=== PATIENT | male | born 1940 | race Caucasian/White ===

== ENCOUNTER 2017-04-08 13:11 | Inpatient (IN) | payer MEDICARE, OTHER ==
[~2017-04-08] VITALS: Ht 188 cm; Wt 91.2 kg
[~2017-04-08 13:11] MED LIST: ASPI-1471 PO; ASPI-715 PO; BETA BLOCKER PO; CALC-547 PO; DIURETIC PO; GLUC-232 PO; GLUC-283 PO; HYDR-385 PO; HYDR12.561 PO; HYDR28.426 TP; KET10 PO; LISI-351 PO; LISI5TAB25 PO; LOSA50TA72 PO; METF-410 PO; METF500T4 PO; METO25TA93 PO; METR55GE TP; MULT1CAP59 PO; MULT1TAB64 PO; PNEU0.5D3 IM; SIM10 PO; SIMV10TA98 PO; STATIN PO; TAMS0.4C25 PO; TRAZ-156 PO; ZOLP-350 PO; ZOLP-358 PO
--- NOTE | 2017-04-08 13:25 | ER Report ---
History and Physical Time Seen By MD: 13:24 Hx. of Stated Complaint: Pt reports a fast heart rate. pt states he is not dizzy, sweaty or confused. (SHEREE HE [facility]-) HPI/ROS CHIEF COMPLAINT: Rapid heart rate HISTORY OF PRESENT ILLNESS: This is a 76-year-old male who presents to the emergency department for a rapid heart rate. Patient states that he was sitting in his chair watching television about 30 minutes prior to arrival when he noticed his heart rate was beginning to accelerate. Patient states that he had an episode similar to this in January and has had an echocardiogram and has been following up with cardiology but has not had any recurrent heart rate issues. Patient denies chest pain or shortness of breath. Patient has no other complaints no aches, chills, fevers. Patient denies recent travel. REVIEW OF SYSTEMS: Constitutional: No fever, no chills. Eyes: No discharge. ENT: No sore throat. Cardiovascular: As above. Respiratory: No cough, no shortness of breath. Gastrointestinal: No abdominal pain, no vomiting. Genitourinary: No hematuria. Musculoskeletal: No back pain. Skin: No rashes. Neurological: No headache. (SHEREE HE [facility]) Allergies: Coded Allergies: lisinopril (Unverified Adverse Reaction, Mild, cough, 08/13/14) tickle in throat and cough after starting lisinopril. stopped in 07/30. Home Meds Active Scripts Zolpidem Tartrate (AMBIEN) 10 Mg Tablet, 1 TAB PO QHS Y for SLEEP, #30 TAB 1 Refill Prov:JAEL MCDONOUGH MD 02/25/17 Losartan Potassium (LOSARTAN POTASSIUM) 50 Mg Tablet, 1 TAB PO QDAY, #90 TAB 3 Refills Patient must see provider for further refills Prov:JAEL MCDONOUGH MD 02/25/17 Simvastatin (SIMVASTATIN) 10 Mg Tablet, 1 TAB PO HS, #90 TAB 3 Refills Prov:JAEL MCDONOUGH MD 02/25/17 Reported Medications Metformin Hcl (METFORMIN HCL) 500 Mg Tablet, 1 TAB PO QID, TAB 04/08/17 Metronidazole (METROGEL) 55 Gm Gel.w.pump, 55 GM TP 02/06/16 Multivitamin (MULTI VITAMIN DAILY) 1 Each Tablet, 1 EACH PO DAILY 08/11/14 Gluc 2KCL/Chondr/Galilea Hy/Hy Ac (GLUCOSAMINE & CHONDROITIN CAP) Unknown Strength Capsule, 1000 MG PO BID, CAPSULE 03/30/14 Aspirin (ASPIR 81) 81 Mg Tablet.dr, 81 MG PO QDAY, TAB 03/30/14 Discontinued Scripts Metformin Hcl (METFORMIN HCL ER) 500 Mg Tab.er.24, 2 TAB PO BID, #360 TAB 3 Refills Prov:JAEL MCDONOUGH MD 02/25/17 Past Medical/Surgical History She has a past medical and surgical history of hypertension, hypercholesterolemia, hernia repair, vasectomy, arthritis, right foot injury with a fracture, wears glasses, deafness left ear, does use hearing aids, type II diabetes, leukopenia, appendectomy, tonsillectomy, dental implants and bilateral cataract surgery. 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 (1665) Pulse Ox 95 95 04/08/17 04/08/17 04/08/17 04/08/17 13:36 13:40 13:41 13:46 Pulse 138 137 138 Resp 23 17 15 B/P (MAP) 129/104 (112) Pulse Ox 92 92 93 04/08/17 04/08/17 04/08/17 04/08/17 13:51 13:56 14:00 14:01 Pulse 129 134 137 Resp 18 16 17 B/P (MAP) 142/100 (114) Pulse Ox 91 92 94 (SHIRLENE SEGOVIA MD) Physical Exam General Appearance: The patient is alert, has no immediate need for airway protection and no signs of toxicity. Eyes: Pupils equal and round no pallor or injection. ENT, Mouth: Mucous membranes are moist. Respiratory: There are no retractions, lungs are clear to auscultation. Cardiovascular: Irregular rate and rhythm at 140bpm, no murmurs, clicks or rubs. Gastrointestinal: Abdomen is soft and non tender, no masses, bowel sounds normal. Neurological: Alert and oriented 4. Moving all extremities. Following all commands. No focal neuro deficits. Skin: Warm and dry, no rashes. Musculoskeletal: Neck is supple non tender. Extremities are nontender, nonswollen and have full range of motion. [ ] DIFFERENTIAL DIAGNOSIS: After history and physical exam differential diagnosis was considered for chest pain including but not limited to myocardial ischemia, pericarditis pulmonary embolus, chest wall pain, pleural inflammation and pulmonary infectious causes, afib, aflutter. ([facility]EREE HE [facility]) Medical Decision Making Data Points Result Diagram: 04/08/17 1336 04/08/17 1336 Laboratory Hematology Test 04/08/17 13:36 Red Blood Count 4.96 M/uL (4.00-5.60) Mean Corpuscular Volume 92.3 fL (80.0-96.0) Mean Corpuscular Hemoglobin 31.3 pg (26.0-33.0) Mean Corpuscular Hemoglobin Concent 33.9 g/dL (32.0-36.0) Red Cell Distribution Width 14.0 % (11.5-14.5) Mean Platelet Volume 10.1 fL (7.2-11.1) Neutrophils (%) (Auto) 70.5 % (39.4-72.5) Lymphocytes (%) (Auto) 12.6 % (17.6-49.6) Monocytes (%) (Auto) 13.0 % (4.1-12.4) Eosinophils (%) (Auto) 3.1 % (0.4-6.7) Basophils (%) (Auto) 0.8 % (0.3-1.4) Nucleated RBC Relative Count (auto) 0.2 /100WBC Neutrophils # (Auto) 3.9 K/uL (2.0-7.4) Lymphocytes # (Auto) 0.7 K/uL (1.3-3.6) Monocytes # (Auto) 0.7 K/uL (0.3-1.0) Eosinophils # (Auto) 0.2 K/uL (0.0-0.5) Basophils # (Auto) 0.0 K/uL (0.0-0.1) Nucleated RBC Absolute Count (auto) 0.01 K/uL Sodium Level 142 mmol/L (137-145) Potassium Level 3.9 mmol/L (3.5-5.0) Chloride Level 105 mmol/L (98-107) Carbon Dioxide Level 24 mmol/L (22-30) Blood Urea Nitrogen 18 mg/dl (9-21) Creatinine 1.10 mg/dl (0.66-1.25) Glomerular Filtration Rate Calc > 60.0 Random Glucose 116 mg/dl (75-110) Calcium Level 9.2 mg/dl (8.4-10.2) Magnesium Level 2.1 mg/dl (1.7-2.2) Total Bilirubin 0.5 mg/dl (0.2-1.3) Aspartate Amino Transf (AST/SGOT) 18 U/L (0-35) Alanine Aminotransferase (ALT/SGPT) 33 U/L (0-56) Alkaline Phosphatase 73 U/L (0-126) Total Protein 7.7 gm/dl (6.3-8.2) Albumin 4.4 g/dl (3.5-5.0) Chemistry Test 04/08/17 13:36 White Blood Count 5.6 k/uL (4.5-11.0) Red Blood Count 4.96 M/uL (4.00-5.60) Hemoglobin 15.5 g/dL (14.0-18.0) Hematocrit 45.8 % (42.0-52.0) Mean Corpuscular Volume 92.3 fL (80.0-96.0) Mean Corpuscular Hemoglobin 31.3 pg (26.0-33.0) Mean Corpuscular Hemoglobin Concent 33.9 g/dL (32.0-36.0) Red Cell Distribution Width 14.0 % (11.5-14.5) Platelet Count 152 K/uL (150-450) Mean Platelet Volume 10.1 fL (7.2-11.1) Neutrophils (%) (Auto) 70.5 % (39.4-72.5) Lymphocytes (%) (Auto) 12.6 % (17.6-49.6) Monocytes (%) (Auto) 13.0 % (4.1-12.4) Eosinophils (%) (Auto) 3.1 % (0.4-6.7) Basophils (%) (Auto) 0.8 % (0.3-1.4) Nucleated RBC Relative Count (auto) 0.2 /100WBC Neutrophils # (Auto) 3.9 K/uL (2.0-7.4) Lymphocytes # (Auto) 0.7 K/uL (1.3-3.6) Monocytes # (Auto) 0.7 K/uL (0.3-1.0) Eosinophils # (Auto) 0.2 K/uL (0.0-0.5) Basophils # (Auto) 0.0 K/uL (0.0-0.1) Nucleated RBC Absolute Count (auto) 0.01 K/uL Glomerular Filtration Rate Calc > 60.0 Calcium Level 9.2 mg/dl (8.4-10.2) Magnesium Level 2.1 mg/dl (1.7-2.2) Total Bilirubin 0.5 mg/dl (0.2-1.3) Aspartate Amino Transf (AST/SGOT) 18 U/L (0-35) Alanine Aminotransferase (ALT/SGPT) 33 U/L (0-56) Alkaline Phosphatase 73 U/L (0-126) Total Protein 7.7 gm/dl (6.3-8.2) Albumin 4.4 g/dl (3.5-5.0) (SHIRLENE SEGOVIA MD) EKG/Imaging EKG Interpretation 12 lead EKG: Time 1320, the machine reads as sinus tachycardia. Rhythm: Atrial flutter 2:1, ventricular rate of 138. [place]: normal QRS: normal ST segments: No ST depression or elevation. 12 lead EKG: Repeat EKG, time 1503. Rhythm: Sinus rhythm, ventricular rate 89 bpm. With a first-degree AV block. [place]: normal QRS: normal ST segments: No ST depression or elevation. (SHEREE HE [employer] ED Course/Re-evaluation Clinical Indication for ER IV: Hydration, IV Access ED Course The patient was admitted to room. A history physical obtained. Differential diagnoses were considered. IV was started. A CBC, CMP, magnesium were obtained. Laboratory studies unremarkable. Patient was given a trial of 6 mg of adenosine which slowed the rate for us to see atrial flutter, rate promptly returned to 130s 140s. Patient was then given a 20 mg IV bolus of diltiazem and the patient did convert into a sinus rhythm. The patient then did revert back to an atrial flutter with a rate of 130s to 140s. Patient was started on a 5 mg diltiazem drip. I did review this case with Dr. Nanette iFelds as noted below. The patient was admitted to the medical surgical unit for new onset atrial flutter. The patient had no other questions or concerns at the time of admission. 04/08/2017 3:45:00 pm I did speak with Dr. Nanette Fields regarding the patient's case, he is accepted the patient into the hospitalist service. Patient will be admitted to the medical surgical unit on [facility]. Decision to Disposition Date: Apr 08, 2017 Decision to Disposition Time: 15:44 (SHEREE HE [employer]) ED Course Patient is a 76-year-old male with history of palpitations who presents to the emergency department after experiencing palpitations at rest. He feels as if his heart is racing and pounding. He denies any chest pain or shortness of breath. EKG seems to show what appears to be atrial flutter with 21 block. Plan at this time will be trial of adenosine 6 mg to identify underlying rhythm. 04/08/2017 2:27:42 pm after 6 mg of Benicar was administered the rhythm was identified is atrial flutter. Patient returned to his atrial flutter rate of 1: 30 to 1 40 bpm. Plan at this time will be to start diltiazem bolus 20 mg followed by drip at 5 mg will discuss possible admission with the hospitalist for further evaluation and potential anticoagulation. (SHIRLENE SEGOVIA MD) Depart Departure Latest Vital Signs Vital Signs Date Time Temp Pulse Resp B/P (MAP) Pulse Ox O2 Delivery O2 Flow Rate FiO2 04/08/17 14:01 137 17 94 04/08/17 14:00 142/100 (114) 1/22/18 13:17 97.4 Room Air (SHIRLENE SEGOVIA MD) Impression: Primary Impression: Atrial flutter Condition: Improved Disposition: Admitted from ER Referrals: JAEL MCDONOUGH MD (PCP) Problem Qualifiers Primary Impression: Atrial flutter Atrial flutter type: unspecified Qualified Codes: I48.92 - Unspecified atrial flutter SHEREE HE [employer]- Apr 08, 2017 13:25 SHIRLENE SEGOVIA MD Apr 08, 2017 14:20
[2017-04-08] MEDS ORDERED: NS(*) 0.9% 1000 ML BAG 1,000 ML IV ONE (13:34)
[2017-04-08] MEDS ORDERED: ADENOSINE IV SOLN 3 MG/ML SYR IVP ONE (13:45)
--- NOTE | 2017-04-08 13:46 | EKG ---
FACILITY: [facility] - [place] PATIENT NAME: ESMER MALAVE : [id number] MR: [id number] V: [id number] EXAM DATE: ORDERING PHYSICIAN: SHEREE HE TECHNOLOGIST: MATT Feng Reason : TACHYCARDIA Blood Pressure : / mmHG Vent. Rate : 138 BPM Atrial Rate : 138 BPM P-R Int : 150 ms QRS Dur : 084 ms QT Int : 282 ms P-R-T Axes : 046 -02 -06 degrees QTc Int : 427 ms Sinus tachycardia vs. possible atrial flutter Nonspecific ST abnormality Abnormal ECG Confirmed by WILI STACK ([id number]) on 04/08/2017 7:50:22 PM Referred By: JULIETTE Confirmed By:WILI STACK
[2017-04-08 13:47] LABS: PLATELET COUNT, AUTOMATED 152 K/uL (150-450)
[2017-04-08] MEDS ORDERED: DILTIAZEM HCL* 100 MG ADDVIAL 100 MG in NS(*) 0.9% 100 ML ADDVANT BAG 100 ML IV SCH (14:25)
[2017-04-08] MEDS ORDERED: DILTIAZEM 5 MG/ML 5ML IVPUSH IVP ONE (14:25)
[2017-04-08] MEDS ORDERED: METF-410 PO (14:35)
[2017-04-08] MEDS ORDERED: NS(*) 0.9% 250 ML BAG 250 ML in NS(*) 0.9% 250 ML BAG 250 ML IV SCH (15:05)
--- NOTE | 2017-04-08 15:06 | EKG ---
[place] [facility] [place] NAME[place] ESMER MALAVE : [id number] MR: [id number] V: [id number] EXAM DATE: ORDERING PHYSICIAN: SHEREE HE TECHNOLOGIST: MATT Feng Reason : REPEAT Blood Pressure : / mmHG Vent. Rate : 089 BPM Atrial Rate : 089 BPM P-R Int : 226 ms QRS Dur : 084 ms QT Int : 354 ms P-R-T Axes : 054 016 004 degrees QTc Int : 430 ms Sinus rhythm with sinus arrhythmia with 1st degree AV block Nonspecific ST findings Confirmed by WILI STACK ([id number]) on 04/08/2017 7:51:05 PM Referred By: Confirmed By:WILI STACK
[2017-04-08] MEDS ORDERED: NS(*) 0.9% 250 ML BAG 250 ML IVPB ONE (15:15)
[2017-04-08] MEDS ORDERED: NS(*) 0.9% 250 ML BAG 250 ML in NS(*) 0.9% 250 ML BAG 250 ML IV ONE (15:15)
--- NOTE | 2017-04-08 16:51 | RADIOLOGY IMAGING REPORT ---
FACILITY: [facility] PATIENT NAME: Selvin Booth : 1940 MR: [id number] V: [id number] EXAM DATE: ORDERING PHYSICIAN: SHEREE HE TECHNOLOGIST: Location: [facility] [place] Patient: Selvin Booth : 1940 Visit/Account:[id number] Date of Sevice: 04/08/2017 2 VIEWS CHEST INDICATION: Irregular heartbeat. COMPARISON: None available FINDINGS: Cardiomediastinal silhouette and pulmonary vessels within normal limits. There is no focal infiltrate or lobar consolidation. There is no pneumothorax or pleural effusion. No nodule. Small scar seen in left lower lobe. Upper abdomen is unremarkable. No acute bony abnormality. IMPRESSION: 1. No acute cardiopulmonary process. Report Dictated By: Oswaldo Kerr at 04/08/2017 4:46 PM Report E-Signed By: Oswaldo Kerr at 04/08/2017 4:48 PM WSN:[id number]
[2017-04-08] MEDS ORDERED: INSULIN HUM LISPRO 100 UN/ML 3 ML VIAL SUBQ PRN (17:35)
[2017-04-08] MEDS ORDERED: ACETAMINOPHEN 325 MG TAB PO PRN (17:35)
[2017-04-08] MEDS ORDERED: FLUSH 10 ML SYR IVP PRN (17:35)
[2017-04-08 17:37] VITALS: BP 125/92
--- NOTE | 2017-04-08 17:55 | History & Physical ---
History of Present Illness Chief Complaint Heart racing History of Present Illness 76yo male with PMHx significant for type 2 DM, HTN, previous short-lived atrial fibrillation. He reports onset of his hear tracing earlier this afternoon. He denied any CP, SOB, nausea, diaphoresis associated with it. He states it is similar to an episode he had approximately 6 months ago, "but it felt like my heart was pounding" with the previous episode. He was evaluated in the ER and found to have atrial flutter with 2:1 block with heart rate in 130-150 range. His labs were unremarkable as was his CXR. He actually converted to sinus rhythm for a short time, but hen returned to a-flutter. He is currently on IV diltiazem with HR in 80-90 range. He was recommended for admission. History Problems: (1) Colon polyp Onset Date: 11/15/2014 Status: Resolved (2) Insomnia Status: Chronic (3) Hypercholesterolemia Status: Chronic (4) Hypertension, benign Status: Chronic (5) Atrial fibrillation Status: Acute (6) Type II diabetes mellitus Status: Chronic (7) History of inguinal hernia repair Status: Resolved (8) History of appendectomy Status: Resolved Home Meds Active Scripts Zolpidem Tartrate (AMBIEN) 10 Mg Tablet, 1 TAB PO QHS Y for SLEEP, #30 TAB 1 Refill Prov:JAEL MCDONOUGH MD 02/25/17 Losartan Potassium (LOSARTAN POTASSIUM) 50 Mg Tablet, 1 TAB PO QDAY, #90 TAB 3 Refills Patient must see provider for further refills Prov:JAEL MCDONOUGH MD 02/25/17 Simvastatin (SIMVASTATIN) 10 Mg Tablet, 1 TAB PO HS, #90 TAB 3 Refills Prov:JAEL MCDONOUGH MD 02/25/17 Reported Medications Metformin Hcl (METFORMIN HCL) 500 Mg Tablet, 1 TAB PO QID, TAB 04/08/17 Metronidazole (METROGEL) 55 Gm Gel.w.pump, 55 GM TP 02/06/16 Multivitamin (MULTI VITAMIN DAILY) 1 Each Tablet, 1 EACH PO DAILY 08/11/14 Gluc 2KCL/Chondr/Galilea Hy/Hy Ac (GLUCOSAMINE & CHONDROITIN CAP) Unknown Strength Capsule, 1000 MG PO BID, CAPSULE 03/30/14 Aspirin (ASPIR 81) 81 Mg Tablet.dr, 81 MG PO QDAY, TAB 03/30/14 Discontinued Scripts Metformin Hcl (METFORMIN HCL ER) 500 Mg Tab.er.24, 2 TAB PO BID, #360 TAB 3 Refills Prov:JAEL MCDONOUGH MD 02/25/17 Allergies: Coded Allergies: lisinopril (Unverified Adverse Reaction, Mild, cough, 08/13/14) tickle in throat and cough after starting lisinopril. stopped in 07/30. Patient History: FH: breast cancer sister FH: heart disease MOTHER, , Age:89 FH: leukemia FATHER, , Age:82 Other Social/Family Hx . Retired. 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: Former Smoker (as a teenager) Caffeine Intake: Coffee Caffeine/Cups Per Day: 2/DAY Hx Alcohol Use: Yes (one glass of wine daily) Hx Substance Use Disorder: No Social Drug Use: Never Review of Systems Constitutional: No Fever, No Chills, No Night Sweats Neurological: No Syncope, No Confusion, No Weakness, No Dizziness Eyes: No Vision Change, No Loss of Vision ENT: No Hearing Loss Cardiovascular: Palpitations, No Chest Pain Respiratory: No Shortness of Breath, No Cough, No Wheezing Gastrointestinal: No Nausea, No Vomiting, No Diarrhea, No Hematemesis, No Hematochezia, No Melena, No Abdominal Pain Genitourinary: No Dysuria, No Hematuria Musculoskeletal: No Pain, No Impaired Mobility Psychiatric: No Depression, No Anxiety Exam Vital Signs Vital Signs Date Time Temp Pulse Resp B/P (MAP) Pulse Ox O2 Delivery O2 Flow Rate FiO2 04/08/17 17:37 71 16 125/92 (103) 92 Room Air 04/08/17 13:17 97.4 General Appearance: Alert, Awake, No Acute Distress Neuro: No Gross deficits Eyes: PERRLA ENT: Oropharynx Clear Neck: No Masses, Other (no bruits) Cardiovascular: Other (Fairly regular with occasional ectopy) Respiratory: Clear to Auscultation Chest: No Tenderness GI: Abd Soft and Non-Tender : No CVA Tenderness Lymph: No Adenopathy Extremities: Warm, Perfused Integumentary: Skin Intact without Lesion / Mass Psych: Alert & Oriented X3 Medical Decision Making Data Points Result Diagram: 04/08/17 1336 04/08/17 1336 Item Value Date Time Albumin 4.4 g/dl 04/08/17 1336 Total Protein 7.7 gm/dl 04/08/17 1336 Alkaline Phosphatase 73 U/L 04/08/17 1336 Alanine Aminotransferase (ALT/SGPT) 33 U/L 04/08/17 1336 Aspartate Amino Transf (AST/SGOT) 18 U/L 04/08/17 1336 Total Bilirubin 0.5 mg/dl 04/08/17 1336 Magnesium Level 2.1 mg/dl 04/08/17 1336 Calcium Level 9.2 mg/dl 04/08/17 1336 EKG / Imaging Monitor Interpretation: Atrial Flutter Imaging PATIENT NAME: Selvin Booth : 1940 MR: [id number] V: [id number] EXAM DATE: ORDERING PHYSICIAN: SHEREE HE TECHNOLOGIST: Location: [facility] Patient: Selvin Booth : 1940 Visit/Account:[id number] Date of Sevice: 04/08/2017 2 VIEWS CHEST INDICATION: Irregular heartbeat. COMPARISON: None available FINDINGS: Cardiomediastinal silhouette and pulmonary vessels within normal limits. There is no focal infiltrate or lobar consolidation. There is no pneumothorax or pleural effusion. No nodule. Small scar seen in left lower lobe. Upper abdomen is unremarkable. No acute bony abnormality. IMPRESSION: 1. No acute cardiopulmonary process. Report Dictated By: Oswaldo Kerr at 04/08/2017 4:46 PM Report E-Signed By: Oswaldo Kerr at 04/08/2017 4:48 PM WSN:[id number] Assessment and Plan Problems: (1) Atrial flutter Status: Acute Assessment & Plan: He has had ongoing atrial flutter with rapid ventricular response. His rate has been improved on the IV diltiazem, which will be continued. Will check echocardiogram. Will also check troponins and TSH. We also discussed anticoagulation and he would like to be placed on one of the newer agents. Will start him on Eliquis 5mg PO BID. He will need to follow up with cardiology in near future as well. (2) Type II diabetes mellitus Status: Chronic Assessment & Plan: ADA diet. Resume metformin. Watch glucoses and use SSI as needed. (3) Hypertension, benign Status: Chronic Assessment & Plan: He has been managed with losartan. Will hold for now and monitor BPs on diltiazem. Venous Thromboembolism Antithrombotics Is Pt On Any Antithrombotics?: Yes Exam Sepsis Risk: No Definite Risk Problem Qualifiers (1) Atrial flutter: Atrial flutter type: unspecified Qualified Codes: I48.92 - Unspecified atrial flutter WILI STACK MD Apr 08, 2017 17:55
[2017-04-08 18:30] VITALS: BP 133/67
[2017-04-08] MEDS ORDERED: DILTIAZEM CD 180 MG CAPCR PO ONE (19:00)
[2017-04-08] MEDS: APIXABAN 2.5 MG TABLET PO SCH (20:44)
[2017-04-08] MEDS: metFORMIN HCL 500 MG TAB PO SCH (20:45)
[2017-04-08] MEDS ORDERED: SIMVASTATIN 20 MG TAB PO SCH (21:00)
[2017-04-08 23:10] VITALS: BP 112/63
[2017-04-09] MEDS ORDERED: DILTIAZEM HCL* 100 MG ADDVIAL 100 MG in NS(*) 0.9% 100 ML ADDVANT BAG 100 ML IV SCH (00:30)
[2017-04-09 02:56] VITALS: BP 112/63
[2017-04-09 07:17] VITALS: BP 122/75
--- NOTE | 2017-04-09 07:44 | EKG ---
FACILITY: [facility] - [place], [place] PATIENT NAME: ESMER MALAVE : [id number] MR: [id number] V: [id number] EXAM DATE: ORDERING PHYSICIAN: WILI STACK TECHNOLOGIST: HEIDY Test Reason : A FLUTTER Blood Pressure : / mmHG Vent. Rate : 056 BPM Atrial Rate : 056 BPM P-R Int : 160 ms QRS Dur : 086 ms QT Int : 442 ms P-R-T Axes : 043 027 018 degrees QTc Int : 426 ms Sinus bradycardia Otherwise normal ECG When compared with ECG of 08-APR-2017 15:03, [place] interval has decreased Vent. rate has decreased BY 33 BPM Confirmed by THAIS DUDLEY ([id number]) on 04/09/2017 2:22:09 PM Referred By: SEDA Confirmed By:THAIS DUDLEY
[2017-04-09 08:27] VITALS: BMI 25.8
[2017-04-09] MEDS: metFORMIN HCL 500 MG TAB PO SCH (09:19)
[2017-04-09] MEDS: APIXABAN 2.5 MG TABLET PO SCH (09:19)
[2017-04-09 11:10] VITALS: BP 141/72
[2017-04-09] MEDS ORDERED: APIX2.5T PO (11:24)
[2017-04-09] MEDS ORDERED: DILT120C18 PO (11:24)
--- NOTE | 2017-04-09 11:35 | Hospitalist Depart ---
Discharge Summary Reason for Hosp/Final Diag: (1) Atrial flutter Status: Acute Hospital Course & Plan: The patient presented with atrial flutter with rapid ventricular response. His rate improved on IV diltiazem. He was converted to oral diltiazem 180mg but had bradycardia. His dose was decreased to 120mg daily. Echocardiogram was unremarkable and unchanged from a previous echo 6 months prior to admission. Serial troponins were negative. TSH was 3.11. He was started on Eliquis 5mg PO BID. He will follow up with cardiology in the next couple of months. He has a follow up appointment with Dr. Nixon chen. He is to see Dr. Saldana in 1-2 weeks or sooner if he is having problems. (2) Type II diabetes mellitus Status: Chronic Hospital Course & Plan: Continued on ADA diet and metformin. Glucoses were monitored and were well controlled. (3) Hypertension, benign Status: Chronic Hospital Course & Plan: He had been managed with losartan. This was discontinued and he will continue on diltiazem as above. Departure Weight (Pounds): 201 Result Diagram: 04/08/17 1336 04/08/17 1336 Item Value Date Time Troponin I < 0.012 ng/ml 04/08/17 1336 Troponin I < 0.012 ng/ml 04/08/17 205 Thyroid Stimulating Hormone (TSH) 3.11 uIU/ml 04/08/17 1336 Random Glucose 116 mg/dl H 04/08/17 1336 Whole Blood Glucose 113 mg/DL H 04/08/17 1813 Whole Blood Glucose 144 mg/DL H 04/08/17 2040 Whole Blood Glucose 114 mg/DL H 04/09/17 0712 Magnesium Level 2.1 mg/dl 04/08/17 1336 Total Bilirubin 0.5 mg/dl 04/08/17 1336 Aspartate Amino Transf (AST/SGOT) 18 U/L 04/08/17 1336 Alanine Aminotransferase (ALT/SGPT) 33 U/L 04/08/17 1336 Alkaline Phosphatase 73 U/L 04/08/17 1336 Total Protein 7.7 gm/dl 04/08/17 1336 Albumin 4.4 g/dl 04/08/17 1336 Imaging FACILITY: [facility] PATIENT NAME: Esmer Booth : 1940 MR: [id number] V: [id number] EXAM DATE: ORDERING PHYSICIAN: SHEREE HE TECHNOLOGIST: Location: [facility] [place] Patient: Esmer Booth : 1940 Visit/Account:[id number] Date of Sevice: 04/08/2017 2 VIEWS CHEST INDICATION: Irregular heartbeat. COMPARISON: None available FINDINGS: Echocardiogram report was pending at the time of this note. Per verbal report from Dr. Bland it was unchanged from previous. Cardiomediastinal silhouette and pulmonary vessels within normal limits. There is no focal infiltrate or lobar consolidation. There is no pneumothorax or pleural effusion. No nodule. Small scar seen in left lower lobe. Upper abdomen is unremarkable. No acute bony abnormality. IMPRESSION: 1. No acute cardiopulmonary process. Report Dictated By: Oswaldo Kerr at 04/08/2017 4:46 PM Report E-Signed By: Oswaldo Kerr at 04/08/2017 4:48 PM WSN:[id number] EKG FACILITY: [facility] PATIENT NAME: ESMER BOOTH : [id number] MR: [id number] V: [id number] EXAM DATE: ORDERING PHYSICIAN: SHEREE HE TECHNOLOGIST: MATT Feng Reason : TACHYCARDIA Blood Pressure : / mmHG Vent. Rate : 138 BPM Atrial Rate : 138 BPM P-R Int : 150 ms QRS Dur : 084 ms QT Int : 282 ms P-R-T Axes : 046 -02 -06 degrees QTc Int : 427 ms Sinus tachycardia vs. possible atrial flutter Nonspecific ST abnormality Abnormal ECG Confirmed by WILI STACK ([id number]) on 04/08/2017 7:50:22 PM Referred By: JULIETTE Confirmed By:WILI STACK [id number] T: FIDELINA/ Condition: Improved Discharge: Home, Self Care Time Spent: < 30 min Discharge Instructions Home Meds Active Scripts Diltiazem Hcl (DILTIAZEM 24HR CD) 120 Mg Cap.er.24h, 120 MG PO QHS, #30 CAP Prov:THAIS STACK MD 04/09/17 Apixaban (ELIQUIS) 2.5 Mg Tablet, 5 MG PO BID, #60 TAB Prov:THAIS STACK MD 04/09/17 Zolpidem Tartrate (AMBIEN) 10 Mg Tablet, 1 TAB PO QHS Y for SLEEP, #30 TAB 1 Refill Prov:JAEL SALDANA MD 02/25/17 Simvastatin (SIMVASTATIN) 10 Mg Tablet, 1 TAB PO HS, #90 TAB 3 Refills Prov:JAEL SALDANA MD 02/25/17 Reported Medications Metformin Hcl (METFORMIN HCL) 500 Mg Tablet, 1 TAB PO QID, TAB 04/08/17 Metronidazole (METROGEL) 55 Gm Gel.w.pump, 55 GM TP 02/06/16 Multivitamin (MULTI VITAMIN DAILY) 1 Each Tablet, 1 EACH PO DAILY 08/11/14 Gluc 2KCL/Chondr/Galilea Hy/Hy Ac (GLUCOSAMINE & CHONDROITIN CAP) Unknown Strength Capsule, 1000 MG PO BID, CAPSULE 03/30/14 Discontinued Reported Medications Aspirin (ASPIR 81) 81 Mg Tablet.dr, 81 MG PO QDAY, TAB 03/30/14 Discontinued Scripts Losartan Potassium (LOSARTAN POTASSIUM) 50 Mg Tablet, 1 TAB PO QDAY, #90 TAB 3 Refills Patient must see provider for further refills Prov:JAEL SALDANA MD 02/25/17 Metformin Hcl (METFORMIN HCL ER) 500 Mg Tab.er.24, 2 TAB PO BID, #360 TAB 3 Refills Prov:JAEL SALDANA MD 02/25/17 Follow up Referrals: Internal Medicine - In Two Weeks @ [facility] with Jael Saldana Md Diet: Diabetic Activity: As Tolerated Special Instructions: The patient is to keep his appointment with Dr. Contreras in the next 2-3 months. Copies to: JAEL SALDANA MD; SANDRA CONTRERAS MD Venous Thromboembolism Antithrombotics Is Pt On Any Antithrombotics?: Yes Problem Qualifiers (1) Atrial flutter: Atrial flutter type: unspecified Qualified Codes: I48.92 - Unspecified atrial flutter THAIS STACK MD Apr 09, 2017 11:35
[2017-04-09 13:39] VITALS: Ht 188 cm; Wt 91.2 kg
--- NOTE | 2017-04-09 19:51 | RADIOLOGY IMAGING REPORT ---
FAC[place] [facility] [place]IENT NAME: ESMER MALAVE : [id number] MR: [id number] V: [id number] EXAM DATE: ORDERING PHYSICIAN: WILI STACK TECHNOLOGIST: Joan Lopez EXAMINATION:TWO-DIMENSIONAL ECHOCARDIOGRAPH REASON:AFIB flutter 2D Measurements (normal values in centimeters) LV endLV endRV endVent.LV PostAorticLeftPercent DiastolicSystolicDiastolicSeptumWallRootAtriumShortening (3.5-5.7)(0.9-2.6)(0.6-1.1)(0.6-1.1)(2.0-3.7)(1.9-4.0)(25-35%) [id number] STROKE VOLUME: 86 ESTIMATED EJECTION FRACTION:65% PARASTERNAL LONG AXIS: Overall left ventricular systolic function appears to be normal. Chamber sizes show mild enlargement of the right ventricle & the left atrium. The aortic valve & mitral valve both appear to open normally. The patient appears to be in sinus rhythm. Color examination of the valves reveals a trace of mitral insufficiency, a trace of aortic insufficiency present. PARASTERNAL SHORT AXIS: Overall left ventricular systolic function again appears to be normal. Aortic valve is trileaflet in configuration & appears to open normally. Color examination of the valves reveals a trace of tricuspid, mitral, aortic & pulmonic insufficiency present. No wall motion abnormalities are noted. The patient is in sinus in this echocardiograph. APICAL FOUR AND TWO CHAMBER: Right ventricle appears to be mildly enlarged. The left atrium appears to be mildly enlarged. The overall left ventricular systolic function appears to be normal. The tricuspid & mitral valve appear to open normally. The aortic valve area is measured within normal ranges at 4.6cm2. The mitral valve area measures within normal ranges at 2.6cm2. Left atrial volume is mildly increased at 32ml/m2. Right atrial volume is at upper range of normal at 29ml/m2. SUBCOSTAL VIEW: No pericardial effusion was noted. No atrioseptal or ventriculoseptal defects were appreciated. Tricuspid regurgitation Vmax was measured at 2.36m/sec. Doppler examination of the mitral valve in diastole does reveal the A wave > E wave suggesting decreased diastolic function. OVERALL IMPRESSION: 1. Normal left ventricular ejection fraction of 65% with a Grade 1/4 decrease in diastolic function. 2. Mild right ventricular enlargement & mild left atrial enlargement with the right atrium being the upper end of normal in size. The left ventricle is normal in size. 3. There is a trace of mitral, tricuspid, aortic & pulmonic insufficiency present. The estimated right ventricular systolic pressure is within normal range at 25mm Hg. No stenosis of any of the valves was noted. No thrombi were noted in any of the chambers but the left atrial appendage was not seen. The patient does appear to be in sinus rhythm. Dictated by: Karthik Bland M.D. on 04/09/2017 at 11:04 Transcribed by: ANGELO on 04/09/2017 at 15:17 Approved by: Karthik Bland M.D. on 04/09/2017 at 19:49 [facility]
[2017-04-09] MEDS ORDERED: DILTIAZEM CD 120 MG CAPCR PO SCH (21:00)
[2017-04-11] MEDS ORDERED: INFLUENZA VIRUS VAC 0.5 ML SYR IM ONLY ONE (09:00)
== END 2017-04-09 13:36 | disposition home or self-care (01) | DRG 310 ==
LOC: ER 13:45 → MED 16:00
PROVIDERS: ADMIT Internal Medicine; ATTEND Internal Medicine
DX: I48.92 Unspecified atrial flutter (principal); E11.9 Type 2 diabetes mellitus without complications; I10 Essential (primary) hypertension; T46.1X5A Adverse effect of calcium-channel blockers, initial encounter; Z87.891 Personal history of nicotine dependence; R00.1 Bradycardia, unspecified; E78.00 Pure hypercholesterolemia, unspecified; G47.00 Insomnia, unspecified; Y92.230 Patient room in hospital as the place of occurrence of the external cause; Z88.8 Allergy status to other drugs, medicaments and biological substances; Z79.4 Long term (current) use of insulin
CPT/HCPCS: 36416; 71046; 82040; 82247; 82310; 82374; 82435; 82565; 82947; 82948; 83735; 84075; 84132; 84155; 84295; 84443; 84450; 84460; 84484; 84520; 85025; 93005; 93306; 96361; 96365; 96375; 99285; J0153; J3490; J7030; J7050

== ENCOUNTER → 2017-11-04 | Outpatient (CLI) | payer MEDICARE, OTHER ==
[2017-04-09 13:39] VITALS: BMI 25.8
[~2017-11-04] MED LIST changes: +APIX2.5T PO; +APIX5TAB PO; +DILT120C18 PO; -METF-410 PO; +METF-411 PO; -TRAZ-156 PO; +TRAZ50TA34 PO
[2017-11-04 08:24] LABS: PLATELET COUNT, AUTOMATED 135 K/uL (150-450)
[2017-11-04 08:35] LABS: LDL CHOLESTEROL 41 mg/dl
== END ==
LOC: LAB 08:04
PROVIDERS: ATTEND Internal Medicine
DX: E78.00 Pure hypercholesterolemia, unspecified (principal); E11.9 Type 2 diabetes mellitus without complications; I10 Essential (primary) hypertension; I48.91 Unspecified atrial fibrillation; Z12.5 Encounter for screening for malignant neoplasm of prostate
CPT/HCPCS: 81001; 83036; 84443; 85025; G0103; 36415; 82040; 82043; 82247; 82310; 82374; 82435; 82465; 82565; 82947; 83718; 84075; 84132; 84153; 84155; 84295; 84450; 84460; 84478; 84520

== ENCOUNTER → 2018-01-08 | Outpatient (REF) | payer MEDICARE, OTHER ==
[2017-04-09 13:39] VITALS: BMI 25.8
[~2018-01-08] MED LIST changes: +FLU60VIA41 IM; -LOSA50TA72 PO; +LOSA50TA74 PO; -METF-411 PO; +METF-450 PO; +MIRT-22 PO
== END ==
LOC: ZZSENDIN 12:00
PROVIDERS: ATTEND Urology
DX: N41.1 Chronic prostatitis (principal)
CPT/HCPCS: 88305; 88344

== ENCOUNTER → 2018-05-16 | Outpatient (CLI) | payer MEDICARE, OTHER ==
[2017-04-09 13:39] VITALS: BMI 25.8
[~2018-05-16] MED LIST changes: +DILT120C12 PO; -DILT120C18 PO; -LOSA50TA74 PO; +LOSA50TA80 PO
== END ==
LOC: LAB 10:57
PROVIDERS: ATTEND Urology
DX: C61 Malignant neoplasm of prostate (principal)
CPT/HCPCS: 36415; 84153

== ENCOUNTER → 2018-09-04 | Outpatient (CLI) | payer MEDICARE, OTHER ==
[2017-04-09 13:39] VITALS: BMI 25.8
[~2018-09-04] MED LIST changes: -TRAZ50TA34 PO; +TRAZ50TA52 PO
== END ==
LOC: LAB 14:55
PROVIDERS: ATTEND Urology
DX: C61 Malignant neoplasm of prostate (principal)
CPT/HCPCS: 36415; 84153